=== PATIENT | female | born 1990 ===

== ENCOUNTER 2018-06-08 20:15 | Emergency (ER) | payer SELFPAY ==
[2018-06-08 20:15] VITALS: BMI 31.7
[2018-06-08 20:26] VITALS: BP 128/76; PULSE 77; RESP 18; TEMP 98.4; O2SAT 100
--- NOTE | 2018-06-08 22:23 | C.PDOC ---
History Of Present Illness 27 year old female is brought to the ED by EMS for evaluation of right ankle pain and swelling. Patient reports she missed a step while going downstairs at school. Patient twisted her right ankle. Patient denies fever, chills, LOC, headache, head injury, weakness, numbness. Time Seen by Provider: 06/08/18 20:26 Chief Complaint (Nursing): Lower Extremity Problem/Injury History Per: Patient History/Exam Limitations: no limitations Onset/Duration Of Symptoms: Days Current Symptoms Are (Timing): Still Present Recent travel outside of the [place]: No Additional History Per: Patient - Ankle/Foot Description Of Injury: Twisted Currently Unable To: Bend Or Move Past Medical History Reviewed: Historical Data, Nursing Documentation, Vital Signs Vital Signs: Last Vital Signs Temp 98.4 F 06/08/18 20:19 Pulse 77 06/08/18 20:19 Resp 18 06/08/18 20:19 BP 128/76 06/08/18 20:19 Pulse Ox 100 06/08/18 20:19 - Medical History PMH: No Chronic Diseases Surgical History: No Surg Hx Family History: States: Unknown Family Hx - Social History Hx Alcohol Use: No Hx Substance Use: No - Immunization History Hx Tetanus Toxoid Vaccination: No Hx Influenza Vaccination: No Hx Pneumococcal Vaccination: No Review Of Systems Constitutional: Negative for: Fever, Chills Eyes: Negative for: Vision Change Cardiovascular: Negative for: Chest Pain Respiratory: Negative for: Shortness of Breath Gastrointestinal: Negative for: Nausea, Vomiting, Abdominal Pain Musculoskeletal: Positive for: Foot Pain Skin: Negative for: Rash Neurological: Negative for: Weakness, Numbness Physical Exam - Physical Exam Appears: Non-toxic, No Acute Distress Skin: Normal Color, Warm, Dry Head: Atraumatic, Normacephalic Eye(s): bilateral: Normal Inspection Neck: Normal ROM, Supple Extremity: Normal ROM (right foot painful), Tenderness (right lateral malleolus), Capillary Refill (< 2 seconds), No Swelling Pulses: Left Dorsalis Pedis: Normal, Right Dorsalis Pedis: Normal Neurological/Psych: Oriented x3, Normal Speech, Normal Cognition, Normal Motor, Normal Sensation Gait: With Assistance (crutches) ED Course And Treatment O2 Sat by Pulse Oximetry: 100 (ON RA) Pulse Ox Interpretation: Normal - Other Rad Right ankle X-Ray X-Ray: Interpreted by Me, Viewed By Me Interpretation: No fracture or dislocation Progress Note: Plan: - Motrin 600 mg PO. - Right ankle X-Ray. Patient was placed on an CHAYA wrap and given crutches for support. Patient was advised to follow up with ortho. Disposition Counseled Patient/Family Regarding: Diagnosis, Need For Followup - Disposition Referrals: [facility] [Outside] Jeff Guy III, MD [Staff Provider] - Disposition: HOME/ ROUTINE Disposition Time: 22:14 Condition: STABLE Additional Instructions: Please follow up with PMD Take medications as directed Return to ER if worse Prescriptions: Ibuprofen [Motrin] 600 mg PO Q6H #30 tab Instructions: Ankle Sprain (DC) Forms: [employer] (Kiswahili) - Clinical Impression Clinical Impression: Right ankle sprain - PA / ACCESS SERVICES ASSISTANT / Resident Statement MD/DO has reviewed & agrees with the documentation as recorded. - Scribe Statement The provider has reviewed the documentation as recorded by the Scribe Neo Chakraborty All medical record entries made by the Scribe were at my direction and personally dictated by me. I have reviewed the chart and agree that the record accurately reflects my personal performance of the history, physical exam, medical decision making, and the department course for this patient. I have also personally directed, reviewed, and agree with the discharge instructions and disposition.
--- NOTE | 2018-06-09 11:03 | RAD ---
Date of service: 06/08/2018 PROCEDURE: Right Ankle Radiographs. HISTORY: ankle pain, swelling, sp fall COMPARISON: None available. FINDINGS: BONES: Normal. No fracture. JOINTS: Normal. No osteoarthritis. Ankle mortise maintained. Talar dome intact SOFT TISSUES: Normal. OTHER FINDINGS: None. IMPRESSION: Normal right ankle radiographs.
== END 2018-06-08 22:35 | disposition home or self-care (01) ==
LOC: C.ER 20:15
DX: S93.401A Sprain of unspecified ligament of right ankle, initial encounter (principal); X50.9XXA Other and unspecified overexertion or strenuous movements or postures, initial encounter

== ENCOUNTER 2018-07-31 14:21 | Emergency (ER) | payer OTHER ==
[2018-07-31 14:21] VITALS: BMI 31.7
--- NOTE | 2018-07-31 15:26 | C.PDOC ---
History Of Present Illness The patient is a 27-year-old female who sustained a right foot fracture around 2 to 3 months ago. Patient states that she has been immobile, and has not been using her right leg for the past 2 to 3 months. She presents to the ED today for evaluation after she noticed some increased swelling and pain to her right calf and right leg. Otherwise, she denies fever chills, rash, extremity numbness/weakness. Time Seen by Provider: 07/31/18 14:36 Chief Complaint (Nursing): Lower Extremity Problem/Injury History Per: Patient History/Exam Limitations: no limitations Onset/Duration Of Symptoms: Days Current Symptoms Are (Timing): Still Present Additional History Per: Patient Past Medical History Reviewed: Historical Data, Nursing Documentation, Vital Signs Vital Signs: Last Vital Signs Temp 98.7 F 07/31/18 14:32 Pulse 73 07/31/18 14:32 Resp 20 07/31/18 14:32 BP 129/80 07/31/18 14:32 Pulse Ox 98 07/31/18 14:32 - Medical History PMH: Fractures (Right foot) Surgical History: No Surg Hx Family History: States: Unknown Family Hx - Social History Hx Alcohol Use: No Hx Substance Use: No - Immunization History Hx Tetanus Toxoid Vaccination: No Hx Influenza Vaccination: No Hx Pneumococcal Vaccination: No Review Of Systems Constitutional: Negative for: Fever, Chills Musculoskeletal: Positive for: Other (swelling and pain to right calf and leg) Skin: Negative for: Rash Neurological: Negative for: Weakness, Numbness Physical Exam - Physical Exam Appears: Non-toxic, No Acute Distress Skin: Normal Color, Warm, Dry Head: Atraumatic, Normacephalic Eye(s): bilateral: Normal Inspection Oral Mucosa: Moist Neck: Normal ROM, Supple Chest: Symmetrical, No Deformity, No Tenderness Cardiovascular: Rhythm Regular, No Friction Rub, No Murmur Respiratory: Normal Breath Sounds, No Rales, No Rhonchi, No Wheezing Extremity: Normal ROM, No Tenderness, No Calf Tenderness, Capillary Refill (less than 2 seconds ), Other (scant edema to right ankle and right calf ) Pulses: Left Dorsalis Pedis: Normal, Right Dorsalis Pedis: Normal Neurological/Psych: Oriented x3, Normal Speech, Normal Cognition, Normal Sensation ED Course And Treatment O2 Sat by Pulse Oximetry: 98 (on RA) Pulse Ox Interpretation: Normal Medical Decision Making Medical Decision Making: Progress: Venous Duplex scan of right lower extremity ordered and reviewed and results were negative. The patient was ambulatory in the ED with steady gait. Disposition - Disposition Referrals: [facility] [Outside] Disposition: HOME/ ROUTINE Disposition Time: 15:26 Condition: STABLE Additional Instructions: Follow up with the medical doctor within 1-2 days. Return if worsened. Prescriptions: Naproxen [Naprosyn] 500 mg PO BID #20 tab Instructions: Muscle Strain (DC) Forms: [employer] (Cameroonian) - Clinical Impression Clinical Impression: Leg pain - PA / FERMENTER HELPER / Resident Statement MD/DO has reviewed & agrees with the documentation as recorded. - Scribe Statement The provider has reviewed the documentation as recorded by the Scribe (Radha Almazan) All medical record entries made by the Scribe were at my direction and personally dictated by me. I have reviewed the chart and agree that the record accurately reflects my personal performance of the history, physical exam, medical decision making, and the department course for this patient. I have also personally directed, reviewed, and agree with the discharge instructions and disposition.
[2018-07-31 15:29] VITALS: BP 97/58; PULSE 70; RESP 16; TEMP 99.3; O2SAT 98
--- NOTE | 2018-08-01 12:18 | VASCLAB ---
Date of service: 07/31/2018 PROCEDURE: Right Lower Extremity Venous Duplex Exam. HISTORY: Leg swelling, pain, r/o DVT PRIORS: None. TECHNIQUE: Right common femoral, femoral, popliteal and posterior tibial, peroneal and great saphenous veins were evaluated. Flow was assessed with color Doppler, compressibility, assessment of phasic flow and augmentation response. Report prepared by NICOL Rios FINDINGS: RIGHT: 1. Common Femoral Vein: 1.1. Compressibility - Fully compressible: Thrombus - None: Flow - Phasic: Augmentation -Normal: Reflux - None. 2. Femoral Vein: 2.1. Compressibility - Fully compressible: Thrombus - None: Flow - Phasic: Augmentation -Normal: Reflux - None. 3. Popliteal Vein: 3.1. Compressibility - Fully compressible: Thrombus - None: Flow - Phasic: Augmentation -Normal: Reflux - None. 4. Posterior Tibial Vein: 4.1. Compressibility - Fully compressible: Thrombus - None: Flow - Phasic: Augmentation -Normal: Reflux - None. 5. Peroneal Vein: 5.1. Compressibility - Fully compressible: Thrombus - None: Flow - Phasic: Augmentation -Normal: Reflux - None. 6. Great Saphenous Vein: 6.1. Compressibility - Fully compressible: Thrombus -None: Flow - Phasic: Augmentation - Normal: Reflux - None. OTHER FINDINGS: IMPRESSION: No evidence of deep or superficial vein thrombosis of the right lower extremity with excellent venous flow. Normal valve function noted of the right side. Normal venous flow noted in the left common femoral vein.
== END 2018-07-31 15:35 | disposition home or self-care (01) ==
LOC: C.ER 14:21
DX: M79.604 Pain in right leg (principal)

== ENCOUNTER 2018-08-29 10:51 | Outpatient (CLI) | payer OTHER | END 2018-08-29 10:52 | disposition home or self-care (01) | LOC: C.MRIC 10:51 | DX: S92.251A Displaced fracture of navicular [scaphoid] of right foot, initial encounter for closed fracture (principal); S93.621D Sprain of tarsometatarsal ligament of right foot, subsequent encounter ==

== ENCOUNTER 2018-09-08 07:04 | Day surgery (SDC) | payer OTHER ==
[2018-09-06 09:09] VITALS: BMI 33.8
[2018-09-08] MEDS ORDERED: Bupivacaine HCl 0.5% PF (10 ml) Inj ONE ×2 (11:48→12:24)
[2018-09-08] MEDS ORDERED: ceFAZolin 1 gm in NS 2 GM/200 ML BAG IVPB ONE (11:48)
[2018-09-08] MEDS ORDERED: Propofol 10 mg/ml Inj (20 ML) ONE ×2 (12:16→12:48)
[2018-09-08] MEDS ORDERED: Midazolam 2 MG/2 ML VIAL ONE (12:16)
[2018-09-08] MEDS ORDERED: Lidocaine Hydrochloride 5 ML INJ ONE (12:17)
[2018-09-08] MEDS ORDERED: Lidocaine Hydrochloride 10 ML INJ ONE ×2 (12:24→12:59)
[2018-09-08] MEDS ORDERED: Dexamethasone 4 mg/1 ml ONE (13:45)
--- NOTE | 2018-09-08 14:13 | PCM.SURG1 ---
Surgeon's Initial Post Op Note - Surgeon's Notes Surgeon: Dr. Ortiz DPM Retail Advertising Executive: Dr. Burrell DPM PGY-3, Dr. Curtis DPM PGY-2 Type of Anesthesia: IV Sedation Pre-Operative Diagnosis: right navicular fracture Operative Findings: see dictation Post-Operative Diagnosis: same Operation Performed: right foot navicular ORIF Specimen/Specimens Removed: none Estimated Blood Loss: EBL {In ML}: 5 Blood Products Given: N/A Drains Used: No Drains Post-Op Condition: Good Date of Surgery/Procedure: 09/08/18 Time of Surgery/Procedure: 14:13
[2018-09-08] MEDS ORDERED: Oxycodone/Acetaminophen 5/325 mg Tab PO PRN (14:14)
[2018-09-08] MEDS ORDERED: HYDROmorphone 0.5 mg/0.5 ml ISec ONE (14:23)
[2018-09-08] MEDS: HYDROmorphone 0.5 mg/0.5 ml ISec IVP PRN ×2 (14:30→14:40)
[2018-09-08] MEDS ORDERED: Lactated Ringer's 1,000 ML IV SCH (14:30)
[2018-09-08 14:52] VITALS: TEMP 97
--- NOTE | 2018-09-08 15:17 | RAD ---
INTRAOPERATIVE FLUOROSCOPY HISTORY: Right foot navicular fracture. TECHNIQUE/FINDINGS: Fluoroscopic guidance was provided by Radiology department. Please see operative report for full details. Six images were provided. Total fluoroscopy time was 85.7 sec. IMPRESSION: As above
[2018-09-08] MEDS ORDERED: Ropivacaine 0.5% PF (20 ml) inj INJ ONE (15:35)
--- NOTE | 2018-09-08 15:59 | PCM.ANESB2 ---
Popliteal Nerve Block - Popliteal Nerve Block Date of Procedure: 09/08/18 Anesthesiologist: Jordi Howard Procedure Performed: Popliteal Nerve Block Right - Procedure Popliteal Nerve Block: This procedure was explained to the patient that it is for post-operative pain management. Consent was obtained after a thorough discussion with the patient regarding the benefits and possible complications of local anesthetic block of the sciatic nerve at the popliteal level. The patient was brought to the operating room and standard monitors are applied. Time-out was held with the circulating nurse to confirm the correct surgery and the appropriate block. After applying oxygen by nasal cannula and administering IV Sedation, patient's operative leg was gently raised and supported and the groove in between the biceps femoris and vastus lateralis muscles was carefully palpated. The skin approximately 8cm above the popliteal crease was then marked. The ultrasound transducer was then applied to the posterior thigh approximately 8cm above the popliteal crease in the transverse plane and the sciatic nerve before its division was visualized lateral to the popliteal artery and in between the bicep femoris and semimembranosus/semitendinosus muscles. After identification, the lateral portion of the thigh was prepped with chloraprep solution three times and Lidocaine 1% was injected subcutaneously for topical anesthesia. At this point, a # 21 gauge Stimuplex insulated 4 inch needle was inserted into pre-marked area and advanced in a perpendicular direction. The needle was inserted above the ultrasound transducer in-plane towards the sciatic nerve in a [id number] direction. Needle advancement was performed carefully under direct ultrasound visualization. Nerve stimulator was used and dorsiflexion of the _RIGHT foot was elicited at a current of 0.8 MA, lost at 0.4 MA. After repeated negative aspiration, __5___cc of _0.5 % _ropivicaine was injected and this was flowed with _10___cc of _0.5 % _ropivicaine _. Under ultrasound guidance the local anesthetics were observed surrounding sciatic nerve . The needle was removed intact and sterile dressing was applied. The patient tolerated the popliteal nerve block well with stable vital signs, no paresthesias, no pain, or other complaints, was awake for feedback throughout procedure in pacu.
[2018-09-08 17:42] VITALS: BP 127/80; PULSE 63; RESP 18; O2SAT 100
[2018-09-08] MEDS: Oxycodone/Acetaminophen 5/325 mg Tab PO PRN ×2 (18:15→18:47)
--- NOTE | 2018-09-10 02:55 | OP ---
PROCEDURE DATE: 09/08/2018 PREOPERATIVE DIAGNOSIS: Right foot navicular fracture. POSTOPERATIVE DIAGNOSIS: Right foot navicular fracture. PROCEDURE PERFORMED: Right foot navicular open reduction and internal fixation. SURGEON: Kareen Ortiz DPM RAIL EQUIPMENT OPERATOR: Sydni Burrell DPM, PGY-3; Raheel Curtis DPM, PGY-2 ANESTHESIOLOGIST: Dr. Garcia. ANESTHESIA: MAC IV sedation with local injections. INDICATIONS: The patient is a 27-year-old female with the above-mentioned diagnosis. The patient has been treated by Dr. Ortiz in clinic on an outpatient basis, where she has exhausted multiple forms of conservative treatment. The patient seeks surgical intervention at this time. All risks, benefits and possible complications of the proposed procedure have been explained to the patient at length. The patient verbalized understanding and wished to proceed. All questions were answered. No guarantees were given nor implied. Consent was signed. NPO status was confirmed prior to bringing the patient to the operating room. DESCRIPTION OF PROCEDURE: The patient was brought into the operating room and placed on the operating room table in supine position. A well-padded pneumatic ankle tourniquet was applied to the patient's right ankle in a supramalleolar position. A local injection consisting of 20 mL of 1:1 mixture of 1% lidocaine plain and 0.5% Marcaine plain was given in a local block fashion to the patient's right foot. Once local anesthesia was achieved, the right foot was then prepped and draped in the usual sterile manner and the procedure began. PROCEDURE: Right foot navicular ORIF Attention was directed over the dorsal aspect of the right foot over the navicular when approximately a 4 cm linear longitudinal incision was made. The incision was deepened through the subcutaneous tissue using a combination of sharp and blunt dissection. Care was taken to identify and retract all vital neurovascular structures. All bleeders were cauterized and ligated as necessary. Then, with the use of fluoroscopy, the dorsal fragment was noted. A sharp periosteal incision was made over the fragment. The fragment was then removed with a bone cutter and smoothed down with a bone rasp. Attention was then directed to the lateral fragment. The fragment was identified using fluoroscopic guidance. Following standard AO principle and technique, one 2.0 x 20 mm screw was placed across the fracture site with excellent compression noted. Fluoroscopy was used to confirm the placement and making sure the screw was not into the joint. The surgical site was then irrigated with copious amounts of normal sterile saline. Deep closure was achieved with #4-0 Vicryl. The skin was reapproximated with #4-0 Monocryl and Steri-Strips, postop injection consisting of 8 mL of 0.5% Marcaine and 1 mL of dexamethasone. At the end of the procedure, both dorsalis pedis and posterior tibial pulses were dopplerable. Postoperative dressings included Adaptic, 4 x 4, Kerlix and lastly a well-padded AO splint. POSTOPERATIVE CONDITION: The patient tolerated the anesthesia and the procedure well with no apparent complications or complaints. The patient was escorted from the operating room to the recovery room with vital signs stable and neurovascular status intact. The patient will follow up with Dr. Ortiz in clinic on an outpatient basis. Sydni Burrell DPM Kareen Ortiz DPM RUBY
--- NOTE | 2018-09-11 14:34 | RAD ---
PROCEDURE: Right foot radiographs. HISTORY: s/p right foot surgery COMPARISON: Multiple prior radiographs with most recent right foot radiographs performed 08/21/18 FINDINGS: Images are obtained through a cast which obscures osseous detail. Postsurgical changes with metallic screw traversing the navicular bone. Remainder the visualized osseous structures appear intact. IMPRESSION: Postsurgical changes as above.
== END 2018-09-08 19:35 | disposition home or self-care (01) ==
LOC: C.SDS 07:04
PROVIDERS: ATTEND Podiatrist Foot & Ankle Surgery
DX: S92.251A Displaced fracture of navicular [scaphoid] of right foot, initial encounter for closed fracture (principal)
CPT/HCPCS: 28465; 73630; 76000; J0690; J1170; J2250; J2704; J3010